=== PATIENT | female | born 1940 | race Caucasian/White ===

== ENCOUNTER 2019-03-12 09:10 | Outpatient (CLI) | payer MEDICARE ==
--- NOTE | 2019-03-12 10:06 | RAD ---
EXAM: Cervical spine 3 views: HISTORY: Cervical disc disease, neck pain COMPARISON: None FINDINGS: Coiling material overlies the right neck. Prominent bilateral carotid vascular calcifications. No evidence for acute fracture or dislocation involving the visualized spine. There are disc osteophytosis and facet arthrosis changes. No evidence for malalignment. No evidence for a bone lesion. IMPRESSION: Spondylosis. No significant acute process.
== END 2019-03-12 09:11 | disposition home or self-care (01) ==
LOC: TBSIIMAG 09:10
PROVIDERS: ATTEND Family Medicine
DX: M50.10 Cervical disc disorder with radiculopathy, unspecified cervical region (principal); M47.22 Other spondylosis with radiculopathy, cervical region
CPT/HCPCS: 72040; 72141

== ENCOUNTER 2019-03-12 13:43 | Outpatient (CLI) | payer MEDICARE ==
--- NOTE | 2019-03-12 15:08 | MRI ---
CERVICAL SPINE MRI NONCONTRAST: INDICATION: Cervical radicular pain. FINDINGS: There is no acute marrow edema. No acute compression fracture or subluxation. Disk space heights ar e relatively well preserved throughout the cervical spine. There is degenerative hypertrophy at the C1-2 level with effacement of ventral thecal sac. Artifact emanating from the patient's facial regio n does limit evaluation at the upper cervical spine. C2-3: Level is partially obscured by artifact. There is a disk-osteophyte complex asymmetrically to the right without high-grade central canal stenosis. The right neural foramen is obscured. Mild le ft foraminal narrowing. C3-4: Right asymmetric disk-osteophyte with moderate right foraminal narrowing and mild narrowing of the right subarticular zone. No high-grade left foraminal stenosis. C4-5: There is moderate central canal stenosis as a result of broad-based disk-osteophyte. There is moderate bilateral neural foraminal stenosis and ventral cord effacement. C5-6: Moderate central canal stenosis with ventral cord flattening. There is moderate right and mil d left neural foraminal narrowing. C6-7. Moderate central canal stenosis with associated cord flattening, moderate to severe right and mild to moderate left neural foraminal narrowing. C7-T1: There is a broad-based mild disk-osteophyte complex without high-grade central canal stenosis . There is mild bilateral neural foraminal narrowing. Within limitations, no obvious intrinsic cord signal abnormality is seen. IMPRESSION: Multilevel degenerative change throughout the cervical spine and greatest at the mid to lower aspect with associated multilevel central canal and neural foraminal stenosis as well as mass effect upon th e cervical spinal cord as delineated above. POS: [facility]
== END 2019-03-12 13:44 | disposition home or self-care (01) ==
LOC: BICMRI 13:43
PROVIDERS: ATTEND Family Medicine
DX: M50.10 Cervical disc disorder with radiculopathy, unspecified cervical region (principal); M47.22 Other spondylosis with radiculopathy, cervical region; M48.02 Spinal stenosis, cervical region; G95.89 Other specified diseases of spinal cord
CPT/HCPCS: 72040; 72141

== ENCOUNTER 2020-07-28 16:45 | Inpatient (IN) | payer MEDICARE, OTHER ==
[~2020-07-28 16:45] MED LIST: Iopamidol-370 76% 500 ML 1 ML ONE
[2020-07-28 17:06] LABS: #Eosinphils 0.1 thou/uL (0.0-0.7); #Lymphocytes 0.6 thou/uL (1.20-3.40); #Monocytes 0.4 thou/uL (0.11-0.59); #Neutrophils 7.2 thou/uL (1.40-6.50); %Basophils 0.4 % (0.0-1.0); %Eosinophils 0.7 % (0.0-10.0); %Lymphocytes 7.4 % (21.0-51.0); %Neutrophils 86.5 % (42.0-75.0); Mean Corpuscular HGB CONC 31.8 g/dL (32.0-36.0); Mean Corpuscular Hemoglobin 31.9 pg (27.0-31.0); Mean Platelet Volume 6.9 fL (7.4-10.4); Platelet Count 276 thou/uL (130-400); RBC Distribution Width 15.3 % (11.5-14.5); Red Blood Cell (RBC) Count 3.13 mill/uL (4.20-5.40); White Blood Cell (WBC) Count 8.3 thou/uL (4.8-10.8)
[2020-07-28 17:19] LABS: PTT 19.1 sec (22.9-36.1)
[2020-07-28 17:21] LABS: ALT (SGPT) Less than 7 U/L (8-55); AST (SGOT) 14 U/L (5-34); Albumin 3.2 g/dL (3.4-4.8); Alkaline Phosphatase 99 U/L (40-110); Anion Gap 16 mmol/L (10-20); BUN (Urea Nitrogen) 26 mg/dL (9.8-20.1); Bilirubin, Total 0.5 mg/dL (0.2-1.2); Calc. Creatinine Clearance 0 mL/min (70-130); Calcium 8.5 mg/dL (7.8-10.44); Carbon Dioxide 26 mmol/L (23-31); Chloride 100 mmol/L (98-107); Estimated GFR-MDRD 57; Globulin 2.3 g/dL (2.4-3.5); Glucose 172 mg/dL (83-110); Lipase 11 U/L (8-78); Protein, Total 5.5 g/dL (6.0-8.3); Sodium 139 mmol/L (136-145)
[2020-07-28 17:27] LABS: Potassium 2.9 mmol/L (3.5-5.1)
[2020-07-28 17:43] LABS: CKMB 1.2 ng/mL (0-6.6)
[2020-07-28] MEDS ORDERED: Potassium Chloride 40 MEQ in Sodium Chloride 0.9% 250 ML 250 ML IVPB SCH (17:45)
[2020-07-28] MEDS ORDERED: Pantoprazole 80 MG in Sodium Chloride 0.9% 100 ML IVPB SCH (17:45)
[2020-07-28] MEDS ORDERED: Pantoprazole 40 MG VIAL ONE (18:03)
[2020-07-28] MEDS ORDERED: Sodium Chloride 0.9% (PF) 10 ML VIAL FS PRN (19:45)
--- NOTE | 2020-07-28 19:49 | CT ---
EXAM: ABDOMEN AND PELVIC CT SCAN WITH IV CONTRAT: 07/28/20 HISTORY: Abdominal pain, rectal bleeding. COMPARISON: 12/12/19 FINDINGS: Minimal linear stranding in the lung bases but no obvious acute process. There are numerous bone meta stasis, the largest of which involves the left L4 vertebral body, pedicle, and posterior elements whi lonny now measures approximately 3.7 x 5.9 cm in dimension where it previously measured 1.2 x 2.2 cm at the time of the prior 12/12/19 study. In addition, there are numerous other new bone metastasis invol ving the vertebrae and sacrum and right and left pelvis including one in the right iliac bone measuri ng 1.3 x 3.1 cm in size, evidence for extensive worsening bony metastasis. Multiple liver cysts up to nearly 10 cm in size in the right lobe of the liver. Dilated and distended gallbladder without gallbladder wall thickening or pericholecystic fluid or fat stranding, overall s table. No common or intrahepatic ductal dilatation. Pancreas region appears unremarkable. It does con tain some vascular calcifications around the region of the gallbladder. 4.5 x 5.1 cm abdominal aortic aneurysm overall stable. No evidence for acute aneurysm rupture. Spleen, adrenal glands, are unremar kable. Small renal cysts but no renal calculus or acute obstruction. No CT evidence for acute appe ndicitis. Bilateral total hip replacement changes with fairly extensive image degrading artifact. No free intraperitoneal fluid. No evidence for retroperitoneal hematoma. IMPRESSION: 1. Fairly extensive worsening bone metastasis showing enlargement and interval development since 12/12/19. 2. Stable abdominal aortic aneurysm. Stable renal cyst. Stable distended dilated gallbladder but no gallbladder wall thickening or pericholecystic fluid. 3. Other findings as above. POS: [facility]
[2020-07-28 20:14] LABS: Lactic Acid 1.9 mmol/L (0.5-2.2)
[2020-07-29] MEDS ORDERED: Ondansetron PF 4 MG/2 ML Vial IVP PRN (00:24)
[2020-07-29] MEDS ORDERED: Acetaminophen 325 MG TAB PO PRN (00:24)
[2020-07-29] MEDS ORDERED: cloNIDine 0.1 MG TAB PO PRN ×2 (00:24→13:41)
[2020-07-29] MEDS ORDERED: Guaifenesin DM 100-10/5 ML UDCUP PO PRN (00:24)
[2020-07-29] MEDS ORDERED: Labetalol HCl 100 MG/20 ML VIAL SLOW IVP PRN (00:24)
[2020-07-29] MEDS ORDERED: hydrALAZINE 20 MG/ML VIAL SLOW IVP PRN ×2 (00:24→01:37)
[2020-07-29] MEDS ORDERED: Promethazine HCl 12.5 MG in Sodium Chloride 0.9% 50 ML IVPB PRN (00:24)
[2020-07-29] MEDS ORDERED: Lorazepam 2 MG/ML VIAL SLOW IVP PRN (00:27)
[2020-07-29] MEDS ORDERED: Haloperidol Lactate 5 MG/ML VIAL SLOW IVP PRN (00:27)
[2020-07-29] MEDS ORDERED: Sodium Chloride 0.9% 1,000 ML IV SCH (00:30)
[2020-07-29] MEDS ORDERED: Electrolyte Replacement Protoc 1 EACH EACH FS PRN (00:30)
--- NOTE | 2020-07-29 00:30 | PDOC.HHP ---
Hospitalist HPI - History of Present Illness Bloody stool History of Present Illness: Patient is an 80 year old female with PMH diverticulosis, hyperlipidemia, hypertension, generalized seizures, hypertension, CVA w/ R sided deficits, aneurysm w/ surgery, CAD, OA, depressive disorder, back pain, dementia, anxiety who presents to ED from [facility] by EMS for GI bleeding beginning today. Per EMS report patient was initially diaz color confused and initial blood pressure 100 systolic. Patient given 600cc IVF with improvement in her blood pressure and mentation. She denied chest pain, shortness of breath, abdominal pain. Patient noted to have dried blood around her perirectal region going all the way down her legs. Patient is alert and oriented x1 which is her baseline. EMS called patient's and got an update on her history. Records from retirement reviewed. prison medication list reviewed. She is on mobic and aspirin as well as chronic dexamethasone (4mg PO daily) and was not on a PPI or other GI ppx. She Patient is currently on aspirin no other blood thinners. No history of significant GI bleed. Patient does have a history of diverticulosis. In ED, hemoglobin 10, vital signs unremarkable, lactic acid 2.4 -> 1.9, tni 0.03, k 2.9. CT abdomen/pelvis performed revealing signs of extensive metastatic disease w/ numerous bony metastasis in the sacrum and pelvis, multiple liver cysts up to 10cm in size right lobe of the liver. 4.5-5.1cm abdominal aortic aneurysm also observed with no signs of rupture. patient given protonix and potassium, admitted for further workup and care. Hospitalist ROS - Review of Systems Constitutional: denies: fever, chills, sweats, weakness, malaise, other Eyes: denies: pain, vision change, conjunctivae inflammation, eyelid inflammation, redness, other ENT: denies: ear pain, ear discharge, nose pain, nose discharge, nose congestion, mouth pain, mouth swelling, throat pain, throat swelling, other Respiratory: denies: cough, dry, shortness of breath, hemoptysis, SOB with excertion, pleuritic pain, sputum, wheezing, other Cardiovascular: denies: chest pain, palpitations, orthopnea, paroxysmal noc. dyspnea, edema, light headedness, other Gastrointestinal: reports: diarrhea, melena, hematochezia. denies: nausea, vomiting, abdominal pain, constipation, other Genitourinary: denies: dysuria, frequency, incontinence, hematuria, retention, other Musculoskeletal: denies: neck pain, shoulder pain, arm pain, back pain, hand pain, leg pain, foot pain, other Skin: denies: rash, lesions, varsha, bruising, other Neurological: denies: weakness, numbness, incoordination, change in speech, confusion, seizures, other All other systems reviewed; all pertinent +/- noted in HPI/Subj - Medication Medications: reviewed meloxicam [facility] Jul 28, 2020 17:10 ALLIE Thompson Laine tablet : Strength - 15 mg : ORAL Patient Dose: 15 mg Oral once a day (in the morning). aspirin oral [facility] Jul 28, 2020 17:11 ALLIE Thompson Laine tablet : Strength - 81 mg : ORAL Patient Dose: 81 mg Oral. metoprolol tartrate oral [facility] Jul 28, 2020 17:11 ALLIE Thompson Laine tablet : Strength - 25 mg : ORAL Patient Dose: 1/2 tab(s) Oral 2 times a day. memantine [facility] Jul 28, 2020 17:12 ALLIE Thompson Laine tablet : Strength - 10 mg : ORAL Patient Dose: 10 mg Oral 2 times a day. Hospitalist History - Past Medical History Other Medical History: diverticulosis, hyperlipidemia, hypertension, generalized seizures, hypertension, CVA w/ R sided deficits, aneurysm w/ surgery, CAD, OA, depressive disorder, back pain, dementia, anxiety - Past Surgical History Other Surgical History: EGD, HEART CATH, R KNEE BREAST AUGMENTATION, RIGHT SHOULDER, L HIP. multiple MSK injuries. - Family History Family History: reports: no pertinent history - Social History Alcohol: reports: None Drugs: reports: none - Exam General Appearance: NAD, awake alert General - other findings: aox1 Eye: PERRL, anicteric sclera ENT: normocephalic atraumatic, no oropharyngeal lesions, moist mucosa Neck: supple, symmetric, no JVD, no thyromegaly, no lymphadenopathy, no carotid bruit Heart: RRR, no murmur, no gallops, no rubs, normal peripheral pulses Respiratory: CTAB, no wheezes, no rales, no ronchi, normal chest expansion, no tachypnea, normal percussion Gastrointestinal: soft, non-tender, non-distended, normal bowel sounds, no palpable masses, no hepatomegaly, no splenomegaly, no bruit Extremities: no cyanosis, no clubbing, no edema Extremities - other findings: dried blood on legs Skin: normal turgor, no lesions, no rashes Neurological: cranial nerve grossly intact, normal sensation to touch, no weakness, no focal deficits, no new deficit Musculoskeletal: normal tone, normal strength, no muscle wasting Psychiatric: normal affect, normal behavior Psychiatric - other findings: aox1 Hospitalist Results - Labs Result Diagrams: 07/28/20 16:59 07/28/20 16:59 Lab results: WBC 8.3 thou/uL (4.8-10.8) 07/28/20 16:59 Hgb 10.0 g/dL (12.0-16.0) L 07/28/20 16:59 Hct 31.5 % (36.0-47.0) L 07/28/20 16:59 MCV 101.0 fL (78.0-98.0) H 07/28/20 16:59 Plt Count 276 thou/uL (130-400) 07/28/20 16:59 Neutrophils % 86.5 % (42.0-75.0) H 07/28/20 16:59 Sodium 139 mmol/L (136-145) 07/28/20 16:59 Potassium 2.9 mmol/L (3.5-5.1) L* 07/28/20 16:59 Chloride 100 mmol/L (98-107) 07/28/20 16:59 Carbon Dioxide 26 mmol/L (23-31) 07/28/20 16:59 BUN 26 mg/dL (9.8-20.1) H 07/28/20 16:59 Creatinine 0.94 mg/dL (0.6-1.1) 07/28/20 16:59 Glucose 172 mg/dL (83-110) H 07/28/20 16:59 Lactic Acid 1.9 mmol/L (0.5-2.2) 07/28/20 19:48 Calcium 8.5 mg/dL (7.8-10.44) 07/28/20 16:59 Total Bilirubin 0.5 mg/dL (0.2-1.2) 07/28/20 16:59 AST 14 U/L (5-34) 07/28/20 16:59 ALT Less than 7 U/L (8-55) L 07/28/20 16:59 Alkaline Phosphatase 99 U/L (40-110) 07/28/20 16:59 CK-MB (CK-2) 1.2 ng/mL (0-6.6) 07/28/20 16:59 Troponin I 0.030 ng/mL (< 0.028) H 07/28/20 16:59 Serum Total Protein 5.5 g/dL (6.0-8.3) L 07/28/20 16:59 Albumin 3.2 g/dL (3.4-4.8) L 07/28/20 16:59 Lipase 11 U/L (8-78) 07/28/20 16:59 RADIOLOGY [facility] Jul 28, 2020 20:22 ALLIE Torres, [place] CT Abdomen Pelvis W Con Observe DT: [facility] Jul 28, 2020 16:54 ABDPELV EXAM: ABDOMEN AND PELVIC CT SCAN WITH IV CONTRAT: 07/28/20 HISTORY: Abdominal pain, rectal bleeding. COMPARISON: 12/12/19 FINDINGS: Minimal linear stranding in the lung bases but no obvious acute process. There are numerous bone meta stasis, the largest of which involves the left L4 vertebral body, pedicle, and posterior elements whi ch now measures approximately 3.7 x 5.9 cm in dimension where it previously measured 1.2 x 2.2 cm at the time of the prior 12/12/19 study. In addition, there are numerous other new bone metastasis invol ving the vertebrae and sacrum and right and left pelvis including one in the right iliac bone measuri ng 1.3 x 3.1 cm in size, evidence for extensive worsening bony metastasis. Multiple liver cysts up to nearly 10 cm in size in the right lobe of the liver. Dilated and distended gallbladder without gallbladder wall thickening or pericholecystic fluid or fat stranding, overall s table. No common or intrahepatic ductal dilatation. Pancreas region appears unr emarkable. It does con tain some vascular calcifications around the region of the gallbladder. 4.5 x 5.1 cm abdominal aortic aneurysm overall stable. No evidence for acute aneurysm rupture. Spleen, a drenal glands, are unremar kable. Small renal cysts but no renal calculus or acute obstruction. No CT evidence for acute appe ndicitis. Bilateral total hip replacement changes with fairly extensive image degrading artifact. No free intraperitoneal fluid. No evidence for retroperitoneal hematoma. IMPRESSION: 1. Fairly extensive worsening bone metastasis showing enlargement and interval development since 12/12/19. 2. Stable abdominal aortic aneurysm. Stable renal cyst. Stable distended dilated gallbladder but no gallbladder wall thickening or pericholecystic fluid. 3. Other findings as above. POS: [facility] . Additional comment: VITAL SIGNS [facility] Jul 28, 2020 20:40 ALLIE Guerra Miranda BP: 140/70 Pulse: 83 Resp: 21 O2 sat: 97 on (Room Air) Time: 07/28/2020 20:40. labs, ed documents, retirement documents, imaging reports reviewed - EKG Interpretation EK bpm NSR diffuse St depressions, scooped-appearance/repolarization abnormality mostly lateral leads, no STEMI or AVB. Hospitalist H&P A/P - Plan Plan: Patient is an 80 year old female with PMH diverticulosis, hyperlipidemia, hypertension, generalized seizures, hypertension, CVA w/ R sided deficits, aneurysm w/ surgery, CAD, OA, depressive disorder, back pain, dementia, anxiety who presents to ED from [facility] by EMS for GI bleeding beginning today. # acute GI bleed # apparant metastatic cancer, unknown primary Bloody BM x 1 at assisted living, improved with IVF given by EMS, now AOx1 which is baseline. In ED, hemoglobin 10, vital signs unremarkable, lactic acid 2.4 -> 1.9, tni 0.03, k 2.9. CT abdomen/pelvis performed revealing signs of extensive metastatic disease w/ numerous bony metastasis in the sacrum and pelvis, multiple liver cysts up to 10cm in size right lobe of the liver. 4.5-5.1cm abdominal aortic aneurysm also observed with no signs of rupture. patient given protonix and potassium, admitted for further workup and care. - patient was on aspirin, mobic, chronic steroid therapy and no PPI chronically could suggest a gastritis as cause though will need evaluation for endoscopy for true diagnosis. she is on hospice, and also appears to have metastatic cancer which appears to be a new diagnosis, patient may prefer to opt for conservative management. She is AOx1 at baseline with dementia. - will consult palliative care and GI to help with goals of care, if patient was hospice before she may prefer to return to [facility] instead of intensive workup - start IV ppi BID, hold ASA/NSAIDS - does have history of gastric ulcer seen by Dr Waggoner about 10 years ago I believe, unknown followup since then # chronic use of steroid medications - patient on decadron 4mg PO daily reportedly for arthritis, will give 6 doses IV hydrocortisone for stress dose steroids, can consider returning to home dose after this is complete # history of dementia - AOx1 at baseline, continue memantine # hypokalemia - replacement given in ED, trend BMP DVT ppx - SCD GI ppx - PPI no DNR in chart, defer discussion to palliative care in AM
--- NOTE | 2020-07-29 00:50 | PDOC.EVN ---
Event Note - Event Note Event Note: additional diagnosis: # AAA - of appropriate size to be considered for surgery but likely not surgical candidate, follow up goals of care discussion to determine desire to treat this
[2020-07-29 01:16] VITALS: BMI 21.2
[2020-07-29] MEDS: Hydrocortisone Sod Succ/PF 100 mg/2 ml Vial IVP SCH ×2 (03:53→09:02)
[2020-07-29 04:15] LABS: Prothrombin Time 13.9 sec (12.0-14.7)
[2020-07-29 04:18] LABS: #Lymphocytes 1.2 thou/uL (1.20-3.40); #Monocytes 0.6 thou/uL (0.11-0.59); #Neutrophils 4.5 thou/uL (1.40-6.50); %Basophils 0.6 % (0.0-1.0); %Eosinophils 0.7 % (0.0-10.0); %Lymphocytes 19.1 % (21.0-51.0); %Neutrophils 70.6 % (42.0-75.0); Hemoglobin 9.1 g/dL (12.0-16.0); Mean Corpuscular HGB CONC 33.2 g/dL (32.0-36.0); Mean Corpuscular Hemoglobin 32.9 pg (27.0-31.0); Mean Corpuscular Volume 99.3 fL (78.0-98.0); Mean Platelet Volume 7.3 fL (7.4-10.4); Platelet Count 262 thou/uL (130-400); RBC Distribution Width 15.1 % (11.5-14.5); Red Blood Cell (RBC) Count 2.75 mill/uL (4.20-5.40); White Blood Cell (WBC) Count 6.4 thou/uL (4.8-10.8)
[2020-07-29 04:35] LABS: Anion Gap 12 mmol/L (10-20); BUN (Urea Nitrogen) 22 mg/dL (9.8-20.1); Calc. Creatinine Clearance 62 mL/min (70-130); Calcium 8.6 mg/dL (7.8-10.44); Carbon Dioxide 26 mmol/L (23-31); Chloride 103 mmol/L (98-107); Estimated GFR-MDRD 80; Glucose 107 mg/dL (83-110); Magnesium 1.9 mg/dL (1.6-2.6); Potassium 3.3 mmol/L (3.5-5.1); Sodium 138 mmol/L (136-145)
[2020-07-29] MEDS ORDERED: Magnesium 2 GM/50 ML 2 GM in Premix Bag 1 BAG IVPB SCH (06:30)
[2020-07-29] MEDS ORDERED: Potassium Chloride 20 MEQ TAB PO SCH (07:00)
[2020-07-29] MEDS ORDERED: FLU VACC QS2020-21(65YR UP)/PF 240 MCG/0.7 ML SYRINGE IM ONE (09:00)
[2020-07-29] MEDS: Pantoprazole 40 MG VIAL IVP SCH ×2 (09:02→19:18)
[2020-07-29] MEDS: Polyethylene Glycol 3350 17 GM Packet PO SCH (09:03)
--- NOTE | 2020-07-29 10:32 | CON ---
DATE OF CONSULTATION: HISTORY OF PRESENT ILLNESS: An 80-year-old female from [place], who apparently in some kind of fpc versus home care and a hospice as per her cousin, who states that she had a large bloody stool yesterday. She was taking some blood thinners apparently. No previous history of any other stools. She was given some IV fluids. She is now in the MICU, reason for consult. PAST MEDICAL HISTORY: Otherwise, pertinent for what sounds like hypertension, seizure disorders, previous CVA, previous coronary artery disease, previous arthritis, previous depression, previous dementia, chronic pain, anxiety. PREVIOUS SURGERIES: From old records including right knee, previous cardiac cath, EGD, breast implants. Shoulder surgery, hip surgery. SOCIAL HISTORY: Unknown about alcohol or drug abuse at this time. ALLERGIES: SULFA. MEDICINES: From fpc include: 1. Zoloft 50. 2. Morphine. 3. Namenda 10 mg. 4. Meloxicam 15. 5. Dexamethasone 4. 6. Aspirin. REVIEW OF SYSTEMS: Difficult to obtain. PHYSICAL EXAMINATION: GENERAL: She appears to be in no acute respiratory distress. VITAL SIGNS: Temp 98, pulse 91, blood pressure 150/71, respiratory rate 18. CHEST: No wheezing, no crackles. CARDIAC: Normal S1 and S2. No gallop. ABDOMEN: Soft. NEUROLOGICAL: She is awake, responsive. LABORATORY DATA: White count is 6000, H and H 9 and 21, platelet count is normal 262. INR is normal. Lytes are normal. BUN and creatinine normal. Liver function is normal. DIAGNOSTIC DATA: She had a CT abdomen, which shows no acute process. Chest x-ray was otherwise stable without any acute infiltrates. ASSESSMENT: 1. Gastrointestinal bleed, probably diverticular. 2. Advanced age. 3. Dementia. 4. Depression. 5. Previous cardiac disease. 6. Previous cerebrovascular accident. PLAN: Pulmonary fletcher, she is a DNR. As per the family, will re-verify comfort care. Await input from GI. We will continue slow hydration. We will follow while she is in the MICU. Consultation note, 70 minutes, 50% direct patient care. Job ID: [id number]
[2020-07-29 12:34] LABS: SARS-CoV-2 MS2 Positive; SARS-CoV-2 N Gene Negative; SARS-CoV-2 S Gene Negative; SARS-CoV-2 by NAA Not Detected (NotDetected); SARS-CoV-2 orf1ab Negative
[2020-07-29] MEDS: HYDROcodone/Acetaminophen 5/325 mg Tablet PO PRN ×2 (12:36→22:23)
[2020-07-29] MEDS: NS 0.9% w/ 40 MEQ KCL 1,000 ML IV SCH (13:28)
[2020-07-29] MEDS ORDERED: Lorazepam 1 MG TAB PO PRN (13:39)
--- NOTE | 2020-07-29 13:48 | PDOC.HOSPP ---
- Subjective Encounter Date: 07/29/20 Encounter Time: 11:45 Subjective: Patient seen and examined for GI bleeding. Had a small amount of rectal bleed overnight. No abdominal pain or hematemesis reported. Pulled out several IVs access. - Objective Vital Signs & Weight: Vital Signs (12 hours) Temp 07/29/20 12:13 97.6 F 07/29/20 07:27 98.6 F Weight Weight 139 lb 3.2 oz Most Recent Monitor Data Heart Rate from ECG 80 NIBP 142/62 NIBP BP-Mean 88 Respiration from ECG 23 SpO2 98 I&O: 07/28/20 07/29/20 07/30/20 06:59 06:59 06:59 Intake Total 450 Output Total 200 Balance 250 Result Diagrams: 07/29/20 03:34 07/29/20 03:34 Radiology Reviewed by me: Yes (CT abdomenmetastatic bone lesion) EKG Reviewed by me: Yes (Sinus rhythm on telemetry) Hospitalist ROS - Review of Systems ROS unobtainable: due to mental status - Medication Medications: Active Medications Generic Name Dose Route Start Last Admin Trade Name Freq PRN Reason Stop Dose Admin Hydrocodone Bitart/Acetaminophen 1 tab 07/29/20 00:24 07/29/20 12:36 Hydrocodone/Acetaminophen 5/325 Mg Tablet PO 1 tab Q4H PRN Administration Moderate Pain (4-6) Potassium Chloride/Sodium Chloride 1,000 mls @ 75 mls/hr 07/29/20 12:00 07/29/20 13:28 Ns 0.9% W/ 40 Meq Kcl IV 1,000 mls .[id number] MALISSA Administration Pantoprazole Sodium 40 mg 07/29/20 09:00 07/29/20 09:02 Pantoprazole 40 Mg Vial IVP 40 mg Q12HR MALISSA Administration Polyethylene Glycol 17 gm 07/29/20 09:00 07/29/20 09:03 Polyethylene Glycol 3350 17 Gm Packet PO Not Given DAILY MALISSA Sertraline HCl 50 mg 07/29/20 09:00 07/29/20 09:03 Sertraline Hcl 100 Mg Tab PO Not Given DAILY MALISSA - Exam General Appearance: ill appearing Neck: supple, no JVD Heart: RRR, no gallops, no rubs, normal peripheral pulses Respiratory: no wheezes, no rales, no ronchi, no tachypnea Gastrointestinal: soft, non-distended, normal bowel sounds, no guarding, no rigidity Extremities: no cyanosis, no clubbing, no edema Psychiatric - other findings: Neuro/psych exam limited due to current mentation Hosp A/P (1) GI bleeding Code(s): K92.2 - GASTROINTESTINAL HEMORRHAGE, UNSPECIFIED Status: Acute (2) Acute blood loss anemia Code(s): D62 - ACUTE POSTHEMORRHAGIC ANEMIA Status: Acute (3) Electrolyte abnormality Code(s): E87.8 - OTH DISORDERS OF ELECTROLYTE AND FLUID BALANCE, NEC Status: Acute (4) 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 Patient will need new IV access for IV fluids. Will replace potassium. Most likely upper GI bleed. Case discussed with GI on-call. Patient is probably not a candidate for intervention. Will reconsult GI if she decompensates. Monitor H&H closely. Start clear liquid diet. Resume home medications. Discontinue IV hydrocortisone. Increase dexamethasone p.o. to 4 mg twice daily for now. Plan discussed with at the bedside in detailhe stated understanding. Probably not a candidate for work-up for bone metastasis.
[2020-07-29 14:46] LABS: Potassium 3.8 mmol/L (3.5-5.1)
[2020-07-29] MEDS: Dexamethasone 4 MG TAB PO SCH (16:32)
[2020-07-29] MEDS: Haloperidol 1 MG TAB PO SCH (19:18)
[2020-07-29] MEDS ORDERED: Non-Formulary Item 1 EACH (Sertraline Hcl [Sertraline Hcl] 50 MG Tablet) PO SCH (21:00)
[2020-07-30] MEDS: NS 0.9% w/ 40 MEQ KCL 1,000 ML IV SCH ×2 (00:02→16:23)
[2020-07-30 04:02] LABS: #Lymphocytes 0.6 thou/uL (1.20-3.40); #Monocytes 0.1 thou/uL (0.11-0.59); #Neutrophils 3.6 thou/uL (1.40-6.50); %Eosinophils 0.2 % (0.0-10.0); %Lymphocytes 13.8 % (21.0-51.0); %Monocytes 2.9 % (0.0-10.0); %Neutrophils 83.1 % (42.0-75.0); Hemoglobin 8.3 g/dL (12.0-16.0); Mean Corpuscular HGB CONC 33.7 g/dL (32.0-36.0); Mean Corpuscular Hemoglobin 33.9 pg (27.0-31.0); Platelet Count 241 thou/uL (130-400); RBC Distribution Width 15.5 % (11.5-14.5); Red Blood Cell (RBC) Count 2.44 mill/uL (4.20-5.40); White Blood Cell (WBC) Count 4.3 thou/uL (4.8-10.8)
[2020-07-30 04:26] LABS: ALT (SGPT) Less than 7 U/L (8-55); AST (SGOT) 12 U/L (5-34); Albumin 2.9 g/dL (3.4-4.8); Alkaline Phosphatase 81 U/L (40-110); Anion Gap 13 mmol/L (10-20); BUN (Urea Nitrogen) 21 mg/dL (9.8-20.1); Bilirubin, Direct 0.2 mg/dL (0.1-0.3); Bilirubin, Total 0.4 mg/dL (0.2-1.2); Calc. Creatinine Clearance 66 mL/min (70-130); Calcium 8.4 mg/dL (7.8-10.44); Carbon Dioxide 22 mmol/L (23-31); Chloride 107 mmol/L (98-107); Estimated GFR-MDRD 86; Glucose 143 mg/dL (83-110); Magnesium 1.9 mg/dL (1.6-2.6); Potassium 4.4 mmol/L (3.5-5.1); Sodium 138 mmol/L (136-145)
[2020-07-30] MEDS ORDERED: Magnesium 2 GM/50 ML 2 GM in Premix Bag 1 BAG IVPB SCH (06:45)
[2020-07-30] MEDS ORDERED: Iron, Sodium Ferric Gluconate 250 MG in Sodium Chloride 0.9% 100 ML IVPB SCH (09:00)
[2020-07-30] MEDS: HYDROcodone/Acetaminophen 5/325 mg Tablet PO PRN ×3 (09:02→20:11)
[2020-07-30] MEDS: Dexamethasone 4 MG TAB PO SCH ×2 (09:02→16:20)
[2020-07-30] MEDS: Pantoprazole 40 MG VIAL IVP SCH ×2 (09:03→20:11)
[2020-07-30] MEDS: Polyethylene Glycol 3350 17 GM Packet PO SCH (09:04)
[2020-07-30] MEDS: Haloperidol 1 MG TAB PO SCH ×2 (09:04→20:11)
--- NOTE | 2020-07-30 14:11 | PDOC.HOSPP ---
- Subjective Encounter Date: 07/30/20 Encounter Time: 12:00 Subjective: Patient seen and examined for generalized weakness with GI bleeding. No new episodes of hematemesis or melena. No abdominal pain reported. - Objective Vital Signs & Weight: Vital Signs (12 hours) Temp Pulse Resp BP Pulse Ox 07/30/20 13:06 97.4 F L 07/30/20 13:00 72 16 162/78 H 94 L 07/30/20 08:16 97.4 F L 70 16 138/62 96 07/30/20 03:17 98.6 F 65 16 138/65 95 Weight Weight 139 lb 3.2 oz Most Recent Monitor Data Heart Rate from ECG 77 NIBP 125/62 NIBP BP-Mean 83 Respiration from ECG 18 SpO2 99 I&O: 07/29/20 07/30/20 07/31/20 06:59 06:59 06:59 Intake Total 450 1400 Output Total 200 Balance 250 1400 Result Diagrams: 07/30/20 03:45 07/30/20 03:45 Radiology Reviewed by me: Yes (CT abdomenbone metastasis) Hospitalist ROS - Review of Systems Respiratory: denies: cough, dry, shortness of breath, hemoptysis, SOB with excertion, pleuritic pain, sputum, wheezing, other Cardiovascular: denies: chest pain, palpitations, orthopnea, paroxysmal noc. dyspnea, edema, light headedness, other - Medication Medications: Active Medications Generic Name Dose Route Start Last Admin Trade Name Freq PRN Reason Stop Dose Admin Acetaminophen 650 mg 07/29/20 00:24 07/29/20 18:20 Acetaminophen 325 Mg Tab PO 650 mg Q4H PRN Administration Headache/Fever/Mild Pain (1-3) Hydrocodone Bitart/Acetaminophen 1 tab 07/29/20 00:24 07/30/20 09:02 Hydrocodone/Acetaminophen 5/325 Mg Tablet PO 1 tab Q4H PRN Administration Moderate Pain (4-6) Dexamethasone 4 mg 07/29/20 17:00 07/30/20 09:02 Dexamethasone 4 Mg Tab PO 4 mg BID-WM MALISSA Administration Haloperidol 1 mg 07/29/20 21:00 07/30/20 09:04 Haloperidol 1 Mg Tab PO 1 mg BID MALISSA Administration Potassium Chloride/Sodium Chloride 1,000 mls @ 75 mls/hr 07/29/20 12:00 07/30/20 00:02 Ns 0.9% W/ 40 Meq Kcl IV 1,000 mls .[id number] MALISSA Administration Memantine 10 mg 07/29/20 21:00 07/30/20 09:02 Memantine Hcl 10 Mg Tab PO 10 mg BID MALISSA Administration Pantoprazole Sodium 40 mg 07/29/20 09:00 07/30/20 09:03 Pantoprazole 40 Mg Vial IVP 40 mg Q12HR MALISSA Administration Polyethylene Glycol 17 gm 07/29/20 09:00 07/30/20 09:04 Polyethylene Glycol 3350 17 Gm Packet PO Not Given DAILY MALISSA Sertraline HCl 50 mg 07/29/20 09:00 07/30/20 09:02 Sertraline Hcl 100 Mg Tab PO 50 mg DAILY MALISSA Administration - Exam General Appearance: NAD Neck: supple, no JVD Heart: no gallops, no rubs Respiratory: no wheezes, no rales Gastrointestinal: soft, non-distended, no guarding, no rigidity Extremities: no cyanosis, no clubbing Neurological: no new deficit Musculoskeletal: generalized weakness Hosp A/P (1) GI bleeding Code(s): K92.2 - GASTROINTESTINAL HEMORRHAGE, UNSPECIFIED Status: Acute (2) Acute blood loss anemia Code(s): D62 - ACUTE POSTHEMORRHAGIC ANEMIA Status: Acute (3) Electrolyte abnormality Code(s): E87.8 - OTH DISORDERS OF ELECTROLYTE AND FLUID BALANCE, NEC Status: Acute (4) 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 Patient will need new IV access for IV fluids. Will replace potassium. Most likely upper GI bleed. Case discussed with GI on-call. Patient is probably not a candidate for intervention. Will reconsult GI if she decompensates. Monitor H&H closely. Start clear liquid diet. Resume home medications. Discontinue IV hydrocortisone. Increase dexamethasone p.o. to 4 mg twice daily for now. Plan discussed with at the bedside in detailhe stated understanding. Probably not a candidate for work-up for bone metastasis. 07/30 Hemoglobin dropped to 8.3 from 10.0 on admission. Her hemoglobin earlier this year was 14.5. Will monitor H&H closely. There is no evidence of new GI bleeding at this time. Administer 1 dose of IV iron. Replace magnesium. Continue IV PIs. Continue dexamethasone 4 mg twice daily. Advance diet to full liquid. Recheck hemoglobin and hematocrit in a.m. Continue other medications as above. Plan of care was discussed with the spouse at the bedside. Will probably discharge patient tomorrow if no overnight events. Resume hospice at discharge.
[2020-07-31 03:36] LABS: #Lymphocytes 0.8 thou/uL (1.20-3.40); #Monocytes 0.3 thou/uL (0.11-0.59); #Neutrophils 6.2 thou/uL (1.40-6.50); %Basophils 0.1 % (0.0-1.0); %Eosinophils 0.1 % (0.0-10.0); %Lymphocytes 10.4 % (21.0-51.0); %Monocytes 3.6 % (0.0-10.0); %Neutrophils 85.9 % (42.0-75.0); Hemoglobin 8.4 g/dL (12.0-16.0); Mean Corpuscular HGB CONC 33.8 g/dL (32.0-36.0); Mean Platelet Volume 7.1 fL (7.4-10.4); Platelet Count 262 thou/uL (130-400); RBC Distribution Width 15.8 % (11.5-14.5); Red Blood Cell (RBC) Count 2.48 mill/uL (4.20-5.40); White Blood Cell (WBC) Count 7.2 thou/uL (4.8-10.8)
[2020-07-31 03:37] LABS: Reticulocyte Count 3.6 % (0.5-1.5)
[2020-07-31 08:28] VITALS: BP 151/70; TEMP 97.7
[2020-07-31] MEDS: Dexamethasone 4 MG TAB PO SCH (08:28)
[2020-07-31] MEDS: Pantoprazole 40 MG VIAL IVP SCH (08:29)
[2020-07-31] MEDS: Polyethylene Glycol 3350 17 GM Packet PO SCH (08:31)
[2020-07-31] MEDS ORDERED: Iron, Sodium Ferric Gluconate 125 MG in Sodium Chloride 0.9% 100 ML IVPB SCH (09:00)
[2020-07-31] MEDS: Haloperidol 1 MG TAB PO SCH (09:39)
[2020-07-31] MEDS: HYDROcodone/Acetaminophen 5/325 mg Tablet PO PRN (09:40)
[2020-07-31] MEDS: NS 0.9% w/ 40 MEQ KCL 1,000 ML IV SCH (13:25)
--- NOTE | 2020-08-01 09:02 | DIS ---
DATE OF ADMISSION: 07/28/2020 DATE OF DISCHARGE: 07/31/2020 DISCHARGE DISPOSITION: assisted with hospice. ALLERGIES: THE PATIENT IS ALLERGIC TO SULFA AND HYDRALAZINE. CODE STATUS: Do not resuscitate. DISCHARGE MEDICATIONS: Protonix 40 mg b.i.d. Aspirin and meloxicam were discontinued. All other home medications were left unchanged. An outpatient oncology evaluation if the family requests. TLSO brace if the patient can cooperate. The patient was seen and examined on the day of discharge. Denies any new complaints. No new fever, chills, or rectal bleeding reported. BRIEF HOSPITAL COURSE: The patient is an 80-year-old female with chronic pain syndrome and dementia, currently under hospice, presents to the hospital on July 28, 2020, with generalized weakness along with rectal bleeding. She also has a history of diverticulosis. Her blood pressure initially was 100 systolic that improved with IV fluids by EMS. Please refer to the history and physical for further details. The patient was admitted to the hospital with a diagnosis of generalized weakness due to GI bleeding. She was started on Protonix drip along with IV hydration. She was closely monitored in the IMCU. Her hemoglobin on admission was 10.0 that dropped to 8.3. On the day of discharge, hemoglobin is 8.4. Her hemoglobin in November was 14.5. Reticulocyte was 3.6. She also received iron infusion yesterday. The case was discussed with Gastroenterology on-call. Per GI, the patient does not need any endoscopic evaluation given her multiple comorbidities. She also had a CT scan of the abdomen and pelvis in the emergency room that showed extensive worsening bony metastasis that has worsened since the scan from November. She may benefit from a TLSO brace. However, this cannot be arranged due to weekend. Primary care physician advised to follow. The patient also had some electrolyte abnormality along with lactic acidosis that has normalized. Please note that the patient pulled out several IVs during this hospital stay due to delirium with underlying dementia. FINAL DIAGNOSES: 1. Generalized weakness due to gastrointestinal bleeding, suspected upper gastrointestinal bleeding. 2. Acute blood loss anemia. 3. Electrolyte abnormalities. The patient had hypokalemia and hypomagnesemia. 4. Lactic acidosis on admission, probably due to hypotension, resolved. 5. Extensive bony metastasis of unknown primary. The family decided not to do further diagnostic testing. 6. Chronic abdominal aortic aneurysm. 7. Hypertension. 8. Dementia. 9. Chronic pain syndrome. 10. Sulfa and hydralazine allergy. 11. Code status, do not resuscitate. Time coordinating the discharge of this patient was 38 minutes. The family is at the bedside and understands the above plan of care. Job ID: [id number]
== END 2020-07-31 14:17 | disposition hospice, home (50) | DRG 378 ==
LOC: ERS 16:45 → IMCU/EMU 23:57 → ONC 07-29 15:38
PROVIDERS: ADMIT Internal Medicine; ATTEND Internal Medicine
DX: K92.2 Gastrointestinal hemorrhage, unspecified (principal); D62 Acute posthemorrhagic anemia; E87.2 Acidosis; C79.51 Secondary malignant neoplasm of bone; Z20.828 Contact with and (suspected) exposure to other viral communicable diseases; Z66 Do not resuscitate; E87.6 Hypokalemia; E83.42 Hypomagnesemia; I95.9 Hypotension, unspecified; E78.5 Hyperlipidemia, unspecified; C80.1 Malignant (primary) neoplasm, unspecified; I71.4 Abdominal aortic aneurysm, without rupture; I10 Essential (primary) hypertension; F03.90 Unspecified dementia, unspecified severity, without behavioral disturbance, psychotic disturbance, mood disturbance, and anxiety; G89.4 Chronic pain syndrome; I25.10 Atherosclerotic heart disease of native coronary artery without angina pectoris; M19.90 Unspecified osteoarthritis, unspecified site; F32.9 Major depressive disorder, single episode, unspecified; F41.9 Anxiety disorder, unspecified; G40.909 Epilepsy, unspecified, not intractable, without status epilepticus; K76.89 Other specified diseases of liver; Z79.899 Other long term (current) drug therapy; Z88.2 Allergy status to sulfonamides; Z88.8 Allergy status to other drugs, medicaments and biological substances; Z86.73 Personal history of transient ischemic attack (TIA), and cerebral infarction without residual deficits
CPT/HCPCS: 36415; 74177; 80048; 80053; 80076; 82553; 83605; 83690; 83735; 84484; 85025; 85046; 85610; 85730; 86850; 86900; 86901; 87635; 93005; 94760; C9113; J1720; J2916; J3475; J3480; J3490; J7050; J8540; Q9967; U0003